=== PATIENT | male | born 1945 | race Caucasian/White ===

== ENCOUNTER 2023-12-06 13:40 | Inpatient (IN) | payer MEDICARE ==
[~2023-12-06] VITALS: Ht 172.7 cm; Wt 81.6 kg
[2023-12-06 14:00] VITALS: PULSE 85; RESP 17; TEMP 98
[2023-12-06 14:59] LABS: BASOPHILS % 0.5 % (0.0-1.0); EOSINOPHILS # (AUTO) 0.2 (0.0-0.4); EOSINOPHILS % 2.4 % (0.0-6.0); HEMATOCRIT 38.5 % (38.2-49.6); HEMOGLOBIN 12.1 g/dL (14.0-18.0); LYMPHOCYTES # (AUTO) 1.1 (1.0-3.2); LYMPHOCYTES % 13.7 % (18.0-39.1); MEAN CORPUSCULAR HEMOGLOBIN 33.8 pg (28-32); MEAN CORPUSCULAR HGB CONC 31.4 g/dL (31-35); MEAN CORPUSCULAR VOLUME 107.5 fL (81-99); MONOCYTES # (AUTO) 0.7 (0.2-0.8); MONOCYTES % 9.3 % (4.4-11.3); NEUTROPHILS # (AUTO) 5.6 (2.1-6.9); NEUTROPHILS % 73.6 % (38.7-80.0); PLATELET COUNT 306 x10e3/uL (140-360); RED BLOOD COUNT 3.58 x10e6/uL (4.3-5.7); RED CELL DISTRIBUTION WIDTH 13.1 % (11.7-14.4); WHITE BLOOD COUNT 7.65 x10e3/uL (4.8-10.8)
[2023-12-06 15:20] LABS: ALBUMIN 3.6 g/dL (3.5-5.0); ALBUMIN/GLOBULIN RATIO 0.8 (0.8-2.0); ANION GAP 16.2 mmol/L (8-16); BILIRUBIN,TOTAL 4.6 mg/dL (0.2-1.2); CALCIUM 9.7 mg/dL (8.4-10.2); CREATININE, SERUM 0.84 mg/dL (0.72-1.25); POTASSIUM 4.2 mmol/L (3.5-5.1); TOTAL PROTEIN 8.3 g/dL (6.5-8.1)
[2023-12-06] MEDS ORDERED: IOPAMIDOL 370 MG/ML 100 ML INFUS..BTL INJ ONE (15:31)
[2023-12-06 16:21] VITALS: PULSE 86; RESP 18; O2SAT 97
[2023-12-06 17:11] VITALS: BP 106/54; PULSE 91; RESP 19; TEMP 98.4; O2SAT 93
[2023-12-06] MEDS ORDERED: ASPIRIN81 MG PO (17:25)
[2023-12-06] MEDS ORDERED: INSULIN AS100 UNIT/2 SQ (17:25)
[2023-12-06] MEDS ORDERED: LANTUS 3ML100 UNITS/ (17:25)
[2023-12-06] MEDS ORDERED: FLOMAX0.4 MG PO (17:28)
[2023-12-06] MEDS ORDERED: VITAMIN D325 MCG (17:28)
[2023-12-06] MEDS ORDERED: POTASSIUM CHLO20 ME1 PO (17:28)
[2023-12-06] MEDS ORDERED: VENLAFAXINE HCL75 MG PO (17:28)
[2023-12-06 18:17] VITALS: BP 106/54; PULSE 91; RESP 19; TEMP 98.4; O2SAT 93
[2023-12-06 20:00] VITALS: BP 107/56; PULSE 92; RESP 18; TEMP 98.5; O2SAT 96
[2023-12-06] MEDS: VENLAFAXINE HCL 75 MG TAB PO SCH (20:33)
[2023-12-06 21:00] VITALS: BP 107/56; PULSE 92; RESP 18; TEMP 98.5; O2SAT 96
[2023-12-06] MEDS ORDERED: DEXTROSE 50% SYRINGE 50 ML IV PRN (21:15)
[2023-12-06] MEDS: INSULIN GLARGINE 100 UNITS/ML VIAL SQ SCH (21:26)
[2023-12-06 23:56] LABS: BILIRUBIN,URINE SMALL (NEGATIVE); CLARITY,URINE CLEAR (CLEAR); COLOR,URINE AMBER (YELLOW); GLUCOSE, URINE 500 (NEGATIVE); KETONES,URINE TRACE (NEGATIVE); LEUKOCYTE ESTERASE ,URINE NEGATIVE (NEGATIVE); NITRITE,URINE POSITIVE (NEGATIVE); PH,URINE 6 (5 - 7); PROTEIN,URINE DIPSTICK 1+ (NEGATIVE); URINE UROBILINOGEN 0.2 mg/dL (0.2 - 1)
[2023-12-07] VITALS (8 sets, daily range): BP systolic 107–119; BP diastolic 55–99; PULSE 70–95; RESP 17–20; TEMP 97.1–98.3; O2SAT 94–99
[2023-12-07] MEDS ORDERED: HYDRALAZINE HCL 20 MG/ML VIAL IV PRN
[2023-12-07] MEDS ORDERED: ONDANSETRON HCL INJ 2MG/ML 2ML 2 MG/ML VIAL IV PRN
[2023-12-07 00:08] LABS: BACTERIA,URINE MANY /HPF; EPITHELIAL CELLS,URINE FEW /LPF; RBC,URINE 0-5 /HPF (0-5)
[2023-12-07] MEDS: LEVOTHYROXINE SODIUM 50 MCG TAB PO SCH (06:15)
[2023-12-07] MEDS ORDERED: INSULIN GLARGINE 100 UNITS/ML VIAL SQ SCH (07:30)
[2023-12-07 07:32] LABS: BASOPHILS % 0.5 % (0.0-1.0); EOSINOPHILS # (AUTO) 0.3 (0.0-0.4); EOSINOPHILS % 3.9 % (0.0-6.0); HEMOGLOBIN 10.6 g/dL (14.0-18.0); LYMPHOCYTES # (AUTO) 1.1 (1.0-3.2); LYMPHOCYTES % 14.7 % (18.0-39.1); MEAN CORPUSCULAR HEMOGLOBIN 33.9 pg (28-32); MEAN CORPUSCULAR HGB CONC 32.1 g/dL (31-35); MEAN CORPUSCULAR VOLUME 105.4 fL (81-99); MONOCYTES # (AUTO) 0.9 (0.2-0.8); NEUTROPHILS # (AUTO) 5.2 (2.1-6.9); NEUTROPHILS % 68.2 % (38.7-80.0); PLATELET COUNT 266 x10e3/uL (140-360); RED BLOOD COUNT 3.13 x10e6/uL (4.3-5.7); RED CELL DISTRIBUTION WIDTH 13.2 % (11.7-14.4)
[2023-12-07 07:55] LABS: ANION GAP 12.7 mmol/L (8-16); CALCIUM 9.3 mg/dL (8.4-10.2); CREATININE, SERUM 0.74 mg/dL (0.72-1.25); POTASSIUM 3.7 mmol/L (3.5-5.1)
[2023-12-07] MEDS ORDERED: TAMSULOSIN HCL 0.4 MG CAP PO SCH (09:00)
[2023-12-07] MEDS ORDERED: ASPIRIN 81 MG CHEW TAB PO SCH (09:00)
[2023-12-07] MEDS ORDERED: POTASSIUM CHLORIDE 20 MEQ TAB CR PO SCH (09:00)
[2023-12-07] MEDS: VENLAFAXINE HCL 75 MG TAB PO SCH (09:03)
[2023-12-07] MEDS: INSULIN GLARGINE 100 UNITS/ML VIAL SQ SCH (09:13)
[2023-12-07] MEDS: INSULIN LISPRO 100 UNIT/1 ML 3ML VIAL SQ SCH (09:14)
[2023-12-07] MEDS: TAMSULOSIN HCL 0.4 MG CAP PO SCH (16:24)
[2023-12-07] MEDS: ENOXAPARIN SOD INJ 40 MG/0.4 ML SYR SC SCH (16:25)
[2023-12-08] VITALS (8 sets, daily range): BP systolic 111–126; BP diastolic 62–74; PULSE 81–98; RESP 17–20; TEMP 97.4–98.3; O2SAT 94–96
[2023-12-08] MEDS: SODIUM CHLORIDE 0.9% 250ML 250 ML ONE (11:38)
[2023-12-09] VITALS (8 sets, daily range): BP systolic 110–129; BP diastolic 61–71; PULSE 81–91; RESP 17–20; TEMP 97.5–98.6; O2SAT 94–97
[2023-12-09 05:41] LABS: BASOPHILS % 0.4 % (0.0-1.0); EOSINOPHILS # (AUTO) 0.3 (0.0-0.4); EOSINOPHILS % 4.5 % (0.0-6.0); HEMATOCRIT 35.2 % (38.2-49.6); HEMOGLOBIN 11.2 g/dL (14.0-18.0); LYMPHOCYTES # (AUTO) 1.3 (1.0-3.2); LYMPHOCYTES % 19.6 % (18.0-39.1); MEAN CORPUSCULAR HEMOGLOBIN 33.8 pg (28-32); MEAN CORPUSCULAR HGB CONC 31.8 g/dL (31-35); MEAN CORPUSCULAR VOLUME 106.3 fL (81-99); MONOCYTES # (AUTO) 0.8 (0.2-0.8); NEUTROPHILS # (AUTO) 4.2 (2.1-6.9); NEUTROPHILS % 62.9 % (38.7-80.0); PLATELET COUNT 278 x10e3/uL (140-360); RED BLOOD COUNT 3.31 x10e6/uL (4.3-5.7); WHITE BLOOD COUNT 6.74 x10e3/uL (4.8-10.8)
[2023-12-09 06:02] LABS: ALBUMIN 3.1 g/dL (3.5-5.0); ALBUMIN/GLOBULIN RATIO 0.8 (0.8-2.0); ANION GAP 11.7 mmol/L (8-16); BILIRUBIN,TOTAL 3.9 mg/dL (0.2-1.2); CALCIUM 9.6 mg/dL (8.4-10.2); CREATININE, SERUM 0.7 mg/dL (0.72-1.25); POTASSIUM 3.7 mmol/L (3.5-5.1); TOTAL PROTEIN 7.2 g/dL (6.5-8.1)
[2023-12-09] MEDS ORDERED: GADOBENATE DIMEGLUMINE 1 ML IV ONE (11:35)
[2023-12-10] VITALS: BP 115/57; PULSE 81; RESP 18; TEMP 98; O2SAT 97
[2023-12-10 04:00] VITALS: BP 126/69; PULSE 70; RESP 18; TEMP 98.6; O2SAT 100
[2023-12-10 08:49] VITALS: BP 114/68; PULSE 73; RESP 19; TEMP 98; O2SAT 96
[2023-12-10 12:34] VITALS: BP 105/64; PULSE 83; RESP 19; TEMP 98; O2SAT 95
== END 2023-12-10 14:37 | disposition short-term general hospital (02) | DRG 438 ==
LOC: ER 13:50 → ERHOLD 14:41 → MED/SURG3 16:56
PROVIDERS: ADMIT Internal Medicine; ATTEND Internal Medicine
DX: K86.89 Other specified diseases of pancreas (principal); K83.1 Obstruction of bile duct; R17 Unspecified jaundice; E11.42 Type 2 diabetes mellitus with diabetic polyneuropathy; I10 Essential (primary) hypertension; I25.10 Atherosclerotic heart disease of native coronary artery without angina pectoris; F32.A Depression, unspecified; N40.0 Benign prostatic hyperplasia without lower urinary tract symptoms; G47.33 Obstructive sleep apnea (adult) (pediatric); D64.9 Anemia, unspecified; Z79.4 Long term (current) use of insulin; Z79.82 Long term (current) use of aspirin; Z79.890 Hormone replacement therapy; Z95.1 Presence of aortocoronary bypass graft; Z95.5 Presence of coronary angioplasty implant and graft; Z88.0 Allergy status to penicillin; Z88.5 Allergy status to narcotic agent
CPT/HCPCS: 36415; 74177; 74183; 80048; 80053; 81001; 82378; 82948; 83690; 85025; 86301; 94799; 99284; J0692; J1650; J1815; J2470; J7050; Q9967